=== PATIENT | female | born 1990 | race Two or more races ===

== ENCOUNTER 2021-01-08 17:24 | Emergency (ER) | payer OTHER ==
[~2021-01-08] VITALS: Ht 157.5 cm; Wt 54.9 kg
[2021-01-08] MEDS ORDERED: ACETAMINOPHEN650 M2 PO (21:53)
== END 2021-01-08 22:05 | disposition home or self-care (01) ==
LOC: ER 17:24
DX: O20.0 Threatened abortion (principal)